=== PATIENT | male | born 1970 | race Asian ===

== ENCOUNTER → 2017-03-05 | Outpatient (CLI) | payer OTHER ==
--- NOTE | 2017-03-05 08:41 | RAD ---
EXAM: Left ankle 3 views. HISTORY: Lateral ankle pain after twisting injury COMPARISON: None. FINDINGS: Three views of the left ankle are obtained. 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 There appears to be mild diffuse soft tissue swelling. No fractures are identified. Alignment is normal. There is also at least mild osteoarthritis at the navicular-cuneiform articulations. There is a small plantar calcaneal spur. IMPRESSION: 1. Soft tissue swelling. No fracture or malalignment. 2. Mild osteoarthritis as above.
== END | disposition home or self-care (01) ==
LOC: DXRADRC 08:08
PROVIDERS: ATTEND Physician Assistant Medical
DX: M19.072 Primary osteoarthritis, left ankle and foot (principal); M25.472 Effusion, left ankle
CPT/HCPCS: 73610

== ENCOUNTER → 2018-04-02 | Outpatient (CLI) | payer OTHER ==
--- NOTE | 2018-04-03 07:42 | RAD ---
Right knee, 2 views, 04/02/2018: HISTORY: Knee pain and swelling No fracture or dislocation is identified. There is minimal spurring at the patellofemoral articulation. There is soft tissue fullness in the suprapatellar bursa region suggesting a large joint effusion. IMPRESSION: 1. No acute bony abnormality is detected. 2. Large right knee joint effusion. Electronically signed by: Gil Cerda MD (04/03/2018 7:39 AM) [facility]
== END | disposition home or self-care (01) ==
LOC: RAD 18:21
PROVIDERS: ATTEND Family Medicine
DX: M25.461 Effusion, right knee (principal)
CPT/HCPCS: 73560

== ENCOUNTER → 2018-10-25 | Outpatient (CLI) | payer OTHER ==
--- NOTE | 2018-10-25 08:33 | RAD ---
Three-view left knee dated 10/25/2018. No comparison available. Clinical indication: Medial knee pain for one month. No known injury. FINDINGS: 3 views of left knee show normal bony alignment. No displaced fracture. No acute osseous or articular abnormality. Mild tricompartmental hypertrophic change. Small joint effusion. IMPRESSION: 1. No acute bony abnormality. 2. Small joint effusion. If there is clinical concern for occult fracture or insufficiency fracture, MRI would better evaluate. 3. Mild tricompartmental degenerative changes. Electronically signed by: Olman Fox MD (10/25/2018 8:28 AM) [id number]
== END | disposition home or self-care (01) ==
LOC: RAD 07:56
PROVIDERS: ATTEND Registered Nurse
DX: M17.12 Unilateral primary osteoarthritis, left knee (principal)
CPT/HCPCS: 73562

== ENCOUNTER → 2019-05-22 | Outpatient (CLI) | payer OTHER ==
--- NOTE | 2019-05-22 17:06 | RAD ---
2 views the bilateral knees without comparison for bilateral knee pain. FINDINGS: There is no fracture, dislocation, or acute osseous abnormality involving either knee. There is mild medial compartmental osteoarthritis bilaterally, worse on the left the right. No radiopaque foreign bodies are seen. There is suggestion of a suprapatellar joint effusion on the right. IMPRESSION: 1. No fracture or acute osseous abnormality. 2. Right suprapatellar joint effusion. 3. Mild medial compartmental osteoarthritis bilaterally. Electronically signed by: Prashanth Morse MD (05/22/2019 5:03 PM) [id number]
== END | disposition home or self-care (01) ==
LOC: PMG 08:17
PROVIDERS: ATTEND Physician Assistant
DX: M17.0 Bilateral primary osteoarthritis of knee (principal); M25.461 Effusion, right knee
CPT/HCPCS: 73560